=== PATIENT | male | born 1960 | race Caucasian/White ===

== ENCOUNTER 2020-10-01 13:32 | Emergency (ER) | payer OTHER ==
[~2020-10-01] VITALS: Ht 177.8 cm; Wt 77.3 kg
[2020-10-01] MEDS ORDERED: chlorproMAZINE 25 MG in IV DEXTROSE 5% 50 ML IV ONE (15:45)
--- NOTE | 2020-10-01 16:20 | PHYS DOC ---
Past Medical History Past Surgical History: Appendectomy, Other Additional Past Surgical Histo: umbilical hernia Smoking Status: Current Every Day Smoker Alcohol Use: None General Adult EDM: Chief Complaint: HICCUPS/SINGULTUS HPI: HPI: Patient is a 60 year old male who presents with on September 27 he was admitted to the hospital with an incarcerated umbilical hernia and had a repair done. Patient states he had the surgery on Sunday and then Sunday he began hiccuping. He states that they are deep painful hiccups because he is very sore from his surgery. He states that he will have the hiccups for about 30 to 45 minutes and then he will go 15 minutes without. He states that they put him on cyclobenzaprine to help with his hiccups and he took it at 7:00 this morning but has not helped. He states he has no increased pain in his abdomen, he states he is passing gas, he states he has no anterior internal pain, he has had a bowel movement and he denies any type of fever, shortness of breath or chest pain. He denies any nausea or vomiting. He states he called Dr. Villareal's office who stated for him to come into the emergency room. Patient has a history of hernia, appendectomy, smoker. Currently states no pain and he is feeling pretty good. Review of Systems: Review of Systems: Constitutional: Denies fever or chills. [] Eyes: Denies change in visual acuity. [] HENT: Denies nasal congestion or sore throat. [] Respiratory: Denies cough or shortness of breath. [] Cardiovascular: Denies chest pain or edema. [] GI: Denies abdominal pain, nausea, vomiting, bloody stools or diarrhea. + Hiccups [] : Denies dysuria. [] Musculoskeletal: Denies back pain or joint pain. [] Integument: Denies rash. [] Neurologic: Denies headache, focal weakness or sensory changes. [] Endocrine: Denies polyuria or polydipsia. [] Lymphatic: Denies swollen glands. [] Psychiatric: Denies depression or anxiety. [] Heart Score: C/O Chest Pain: No Risk Factors: Risk Factors: DM, Current or recent (<one month) smoker, HTN, HLP, family history of CAD, obesity. Risk Scores: Score 0 - 3: 2.5% MACE over next 6 weeks - Discharge Home Score 4 - 6: 20.3% MACE over next 6 weeks - Admit for Clinical Observation Score 7 - 10: 72.7% MACE over next 6 weeks - Early Invasive Strategies Current Medications: Current Medications Medications (Trade) Dose Ordered Sig/Garret Start Time Stop Time Status Last Admin Dose Admin Chlorpromazine HCl 25 mg/Dextrose 51 ml @ 100 mls/hr 1X ONCE 10/01/20 15:45 10/01/20 16:15 DC Allergies: Allergies: Allergies Coded Allergies Type Severity Reaction Last Updated Verified No Known Drug Allergies 09/27/20 No Physical Exam: PE: Constitutional: Well developed, well nourished, no acute distress, non-toxic appearance. [] HENT: Normocephalic, atraumatic, bilateral external ears normal, oropharynx moist, no oral exudates, nose normal. [] Eyes: PERRLA, EOMI, conjunctiva normal, no discharge. [] Neck: Normal range of motion, no tenderness, supple, no stridor. [] Cardiovascular:Heart rate regular rhythm, no murmur [] Lungs & Thorax: Bilateral breath sounds clear to auscultation [] Abdomen: Bowel sounds normal, soft, no tenderness, no masses, no pulsatile masses. [] Skin: Warm, dry, no erythema, no rash. [] Back: No tenderness, no CVA tenderness. [] Extremities: No tenderness, no cyanosis, no clubbing, ROM intact, no edema. [] Neurologic: Alert and oriented X 3, normal motor function, normal sensory function, no focal deficits noted. [] Psychologic: Affect normal, judgement normal, mood normal. [] Normal physical exam Current Patient Data: Vital Signs: Vital Signs Date Time Temp Pulse Resp B/P (MAP) Pulse Ox O2 Delivery O2 Flow Rate FiO2 10/01/20 15:12 86 18 143/88 (106) 97 Room Air 10/01/20 14:05 98.5 98.5 EKG: EK and read by Dr. Garcia as sinus rhythm and no STEMI. Radiology/Procedures: Radiology/Procedures: [] Impression: [facility] [address] [place], [place] [id number] IMAGING REPORT Signed PATIENT: RADHA REEDER [facility]: [id number] : 1960 LOCATION: ER AGE: 60 SEX: M EXAM STATUS: REG ER ORD. PHYSICIAN: AJ PAULSON APRN REASON: HICCUPS AFTER SURGERY PROCEDURE: PORTABLE CHEST 1V XR CHEST 1V History: Reason: HICCUPS AFTER SURGERY / Spl. Instructions: / History: Comparison: None. Findings: Possible tiny peritoneum the right diaphragm. No definite pneumomediastinum. Elevation the left hemidiaphragm. Patchy bibasilar opacities. No pleural effusion. No pneumothorax. Normal heart size. Impression: 1. Possible tiny pneumoperitoneum, potentially postoperative. If persistent clinical concern, recommend dedicated imaging. 2. Mild patchy bibasilar opacities, likely atelectasis. Electronically signed by: Nathan Hernandez DO (10/01/2020 4:56 PM) [facility] DICTATED and SIGNED BY: NATHAN HERNANDEZ DO DATE: 10/01/20 [id number] 0 Course & Med Decision Making: Course & Med Decision Making Pertinent Labs and Imaging studies reviewed. (See chart for details) See HPI. Alert and oriented x4. Ambulatory steady gait. Speaks in full clear sentences. Abdomen is soft and nontender. Surgical wound dressing is still intact and nonsaturated. There is no redness around the area to associate with cellulitis or infection. Patient is given Thorazine IV in the ED. After Thorazine given patient states that his hiccups stopped. Chest x-ray shows a tiny pneumoperitoneum. I called Dr. Villareal and spoke to him about the finding and he states it is fine is completely normal no orders at this time. Patient will be sent home and follow-up with Dr. Villareal. Patient states that his hiccups have come back twice since the Thorazine but they only lasted for about 5 minutes. States he is feeling better. [] Dragon Disclaimer: Dragame Disclaimer: This electronic medical record was generated, in whole or in part, using a voice recognition dictation system. Departure Departure Impression: Primary Impression: Hiccups Disposition: HOME / SELF CARE / HOMELESS Condition: STABLE Referrals: CHAYO SINCLAIR MD (PCP) Patient Instructions: Hiccups Additional Instructions: Follow-up with Dr. Mayo's office or sooner if needed. Drink plenty of fluids. If hiccups return you cannot get rid of them he can always come back to the ED. Scripts No Active Prescriptions or Reported Meds AJ PAULSON APRN Oct 01, 2020 16:20
--- NOTE | 2020-10-01 16:59 | RAD ---
XR CHEST 1V History: Reason: HICCUPS AFTER SURGERY / Spl. Instructions: / History: Comparison: None. Findings: Possible tiny peritoneum the right diaphragm. No definite pneumomediastinum. Elevation the left hemid iaphragm. Patchy bibasilar opacities. No pleural effusion. No pneumothorax. Normal heart size. Impression: 1. Possible tiny pneumoperitoneum, potentially postoperative. If persistent clinical concern, recomm end dedicated imaging. 2. Mild patchy bibasilar opacities, likely atelectasis. Electronically signed by: Nathan Hernandez DO (10/01/2020 4:56 PM) [facility]
--- NOTE | 2020-10-01 17:13 | EKG ---
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
[2020-10-01 18:20] VITALS: BP 132/74
== END 2020-10-01 18:22 | disposition home or self-care (01) ==
LOC: ER 13:32
DX: R06.6 Hiccough (principal); F17.200 Nicotine dependence, unspecified, uncomplicated
CPT/HCPCS: 71045; 93005; 96365; 99284; J3230; J7060